=== PATIENT | male | born 1970 | race African-American/Black ===

== ENCOUNTER 2017-11-28 13:02 | Emergency (ER) | payer OTHER | END 2017-11-28 14:30 | disposition home or self-care (01) | LOC: E/R 13:02 | DX: Z48.02 Encounter for removal of sutures (principal); F17.210 Nicotine dependence, cigarettes, uncomplicated | CPT/HCPCS: 99281; Z7502 ==

== ENCOUNTER 2017-12-20 17:23 | Emergency (ER) | payer OTHER | END 2017-12-20 19:00 | disposition left against medical advice (07) | LOC: E/R 19:00 | DX: S01.01XA Laceration without foreign body of scalp, initial encounter (principal); F17.210 Nicotine dependence, cigarettes, uncomplicated; R40.2142 Coma scale, eyes open, spontaneous, at arrival to emergency department; R40.2362 Coma scale, best motor response, obeys commands, at arrival to emergency department; R40.2252 Coma scale, best verbal response, oriented, at arrival to emergency department; W19.XXXA Unspecified fall, initial encounter; Y92.9 Unspecified place or not applicable | CPT/HCPCS: 12001; 99282-25 ==

== ENCOUNTER 2018-09-14 12:21 | Emergency (ER) | payer OTHER | END 2018-09-14 15:39 | disposition home or self-care (01) | LOC: FTE 12:21 | DX: S51.811A Laceration without foreign body of right forearm, initial encounter (principal); W18.39XA Other fall on same level, initial encounter; Y92.9 Unspecified place or not applicable; Z87.891 Personal history of nicotine dependence | CPT/HCPCS: 99283; Z7502 ==

== ENCOUNTER 2019-02-01 19:47 | Emergency (ER) | payer OTHER ==
[2019-02-01] MEDS ORDERED: LIDOCAINE 2%/EPI MPF (SDV) 20 ML VIAL INJ (19:49)
== END 2019-02-02 03:49 | disposition home or self-care (01) ==
LOC: E/R 02-02 03:49
DX: S05.42XA Penetrating wound of orbit with or without foreign body, left eye, initial encounter (principal); F10.920 Alcohol use, unspecified with intoxication, uncomplicated; F17.210 Nicotine dependence, cigarettes, uncomplicated; W10.1XXA Fall (on)(from) sidewalk curb, initial encounter; Y92.9 Unspecified place or not applicable
CPT/HCPCS: 12013; 70450; 72125; 99284-25

== ENCOUNTER 2019-02-19 11:33 | Emergency (ER) | payer OTHER | END 2019-02-19 13:11 | disposition home or self-care (01) | LOC: FTE 11:33 | DX: Z48.02 Encounter for removal of sutures (principal); Z87.891 Personal history of nicotine dependence | CPT/HCPCS: 99281; Z7502 ==